=== PATIENT | male | born 1995 | race Caucasian/White ===

== ENCOUNTER 2017-03-23 10:37 | Emergency (ER) | payer OTHER ==
[2017-03-23 10:48] VITALS: BP 117/74
[2017-03-23] MEDS ORDERED: DEXAMETHASONE SOD PHOS INJ 10 MG/1 ML VIAL IM ONE (11:11)
[2017-03-23] MEDS ORDERED: IBUPROFEN 800 MG TABLET PO ONE (11:11)
--- NOTE | 2017-03-23 11:11 | ER Document Report ---
ED ENT - General Chief Complaint: Sore Throat Stated Complaint: SORE THROAT Time Seen by Provider: 03/23/17 10:52 Mode of Arrival: Ambulatory Information source: Patient Notes: 22-year-old male presents to ED for complaint of sore throat and headache since yesterday. He has enlarged tonsils with white patches on the tonsils. - HPI Patient complains to provider of: Throat problem Onset: Yesterday Onset/Duration: Gradual Quality of pain: Sharp Severity: Moderate Pain Level: 2 Location of pain: Throat Associated symptoms: Sore throat - Large tonsils with exudate Similar symptoms previously: No Recently seen / treated by doctor: No Past Medical History - General Information source: Patient - Social History Smoking Status: Current Every Day Smoker Cigarette use (# per day): Yes - One half pack per day Chew tobacco use (# tins/day): No Smoking Education Provided: Yes - Less than 2 minutes Frequency of alcohol use: None Drug Abuse: None 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 denies: Arthritis, CAD, COPD, CVA, Hyperlipidemia, Hypertension, Malignancy, Thyroid Disfunction Patient has suicidal ideation: No Patient has homicidal ideation: No - Past Medical History Cardiac Medical History: Reports: None Pulmonary Medical History: Reports: None EENT Medical History: Reports: None Neurological Medical History: Reports: None Endocrine Medical History: Reports: None Renal/ Medical History: Reports: None Malignancy Medical History: Reports None GI Medical History: Reports: None Musculoskeltal Medical History: Reports None Skin Medical History: Reports None Psychiatric Medical History: Reports: None Traumatic Medical History: Reports: None Infectious Medical History: Reports: None Surgical Hx: Negative Past Surgical History: Reports: None - Immunizations Immunizations up to date: Yes Hx Diphtheria, Pertussis, Tetanus Vaccination: Yes Review of Systems - Review of Systems Constitutional: Recent illness EENT: Throat pain - Enlarged tonsils with exudate Cardiovascular: No symptoms reported Respiratory: No symptoms reported Gastrointestinal: No symptoms reported Genitourinary: No symptoms reported Male Genitourinary: No symptoms reported Musculoskeletal: No symptoms reported Skin: No symptoms reported Hematologic/Lymphatic: No symptoms reported Neurological/Psychological: Headaches -: Yes All other systems reviewed and negative Physical Exam - Vital signs Vitals: Temp Pulse Resp BP Pulse Ox 98.1 F 60 18 117/74 99 03/23/17 10:45 03/23/17 10:45 03/23/17 10:45 03/23/17 10:45 03/23/17 10:45 Interpretation: Normal - General General appearance: Appears well, Alert - HEENT Head: Normocephalic, Atraumatic Eyes: Normal Pupils: PERRL Ears: Normal External canal: Normal Tympanic membrane: Normal Sinus: Normal Nasal: Normal Mouth/Lips: Normal Pharynx: Erythema, Exudate, Tonsillar hypertrophy. No: Blood in hypopharynx, Peritonsillar abscess, Post nasal drainage, Retropharyngeal abscess, Uvular edema, Potential airway comprom., Other - Respiratory Respiratory status: No respiratory distress Chest status: Nontender Breath sounds: Normal Chest palpation: Normal - Cardiovascular Rhythm: Regular Heart sounds: Normal auscultation Murmur: No - Abdominal Inspection: Normal Distension: No distension Bowel sounds: Normal Tenderness: Nontender Organomegaly: No organomegaly - Back Back: Normal, Nontender - Extremities General upper extremity: Normal inspection, Nontender, Normal color, Normal ROM , Normal temperature General lower extremity: Normal inspection, Nontender, Normal color, Normal ROM , Normal temperature, Normal weight bearing. No: Hai's sign - Neurological Neuro grossly intact: Yes Cognition: Normal Orientation: AAOx4 Nicole Coma Scale Eye Opening: Spontaneous Nicole Coma Scale Verbal: Oriented Nicole Coma Scale Motor: Obeys Commands [place] Coma Scale Total: 15 Speech: Normal Motor strength normal: LUE, RUE, LLE, RLE Sensory: Normal - Psychological Associated symptoms: Normal affect, Normal mood - Skin Skin Temperature: Warm Skin Moisture: Dry Skin Color: Normal Course - Re-evaluation Re-evalutation: 03/23/17 12:32 Patient given Decadron for his enlarged tonsils that are painful. His strep was negative. He was also treated with ibuprofen for the discomfort. Patient instructed to follow-up with his provider for continued sore throat. - Vital Signs Vital signs: Temp Pulse Resp BP Pulse Ox 98.1 F 60 18 117/74 99 03/23/17 10:45 03/23/17 10:45 03/23/17 10:45 03/23/17 10:45 03/23/17 10:45 Discharge - Discharge Clinical Impression: Viral sore throat Condition: Stable Disposition: HOME, SELF-CARE Additional Instructions: SORE THROAT: Sore throats may be caused by viruses, bacteria, or fungi. Most are due to a virus, and must get better on their own. Bacterial sore throats, particularly those due to "strep," need treatment with antibiotics. If an antibiotic is prescribed, be sure to take the medication for a full 10 days. Failure to take the antibiotic can result in complications such as rheumatic fever. Sometimes, an injection of antibiotics is given instead of pills or liquid. This single "shot" is equal in effectiveness to the oral medication. To relieve symptoms, take acetaminophen for pain. Sip clear liquids frequently, or eat popsicles or ice chips. Anesthetic sprays or lozenges may help. Make sure the air in the room is not too dry. Avoid using decongestants or antihistamines. Call the doctor if there is no improvement in two days, or if you have difficulty breathing, increasing throat pain, high fever, rash, or frequent vomiting. STEROID MEDICATION: You have been given a medicine of the cortisone/steroid class. This medication is used to control inflammation or allergy. It is usually only given for a short period of time, until the acute process subsides. There are usually no side effects from short-term use of cortisone-like medications. Some persons feel an increased sense of well-being and are not sleepy at bedtime. Long-term use of cortisone medications is best avoided, unless required for a severe condition. If your condition does not remit, or relapses after the course of corticosteroid medication, you should consult your physician. FOLLOW-UP CARE: If you have been referred to a physician for follow-up care, call the physician s office for an appointment as you were instructed or within the next two days. If you experience worsening or a significant change in your symptoms, notify the physician immediately or return to the Emergency Department at any time for re-evaluation. Follow up with your provider. Forms: Smoking Cessation Education
== END 2017-03-23 12:40 | disposition home or self-care (01) ==
LOC: ER 10:37
DX: J02.8 Acute pharyngitis due to other specified organisms (principal); B97.89 Other viral agents as the cause of diseases classified elsewhere; R51 Headache; J35.1 Hypertrophy of tonsils; F17.210 Nicotine dependence, cigarettes, uncomplicated; Z71.6 Tobacco abuse counseling
CPT/HCPCS: 99283; 96372; 87070; 87880; J1100

== ENCOUNTER 2020-06-07 06:58 | Emergency (ER) | payer OTHER ==
[2020-06-07] MEDS ORDERED: METHOCARBAMOL 500 MG TABLET PO ONE (09:20)
--- NOTE | 2020-06-07 09:23 | ER Document Report ---
ED Headache - General Chief Complaint: Headache >24 hrs old Stated Complaint: HEADACHE Time Seen by Provider: 06/07/20 09:09 Primary Care Provider: [facility] [Provider Group] - Follow up as needed Mode of Arrival: Ambulatory Information source: Patient Notes: Patient presents complaining of occipital headache and neck pain that started yesterday around 8 PM. Patient states that he took Motrin early this morning and presently has headache pain is resolved although he does still have some neck discomfort. Patient denies any fever. Patient denies any nausea or vomiting. Patient denies any history of IV drug abuse. Patient feels as though he had a tension headache. 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 denies: Arthritis, CAD, COPD, CVA, Hyperlipidemia, Hypertension, Malignancy, Thyroid Disfunction Neurological Medical History: Reports: Hx Migraine Renal/ Medical History: Denies: Hx Peritoneal Dialysis Surgical Hx: Negative - Immunizations Immunizations up to date: Yes Hx Diphtheria, Pertussis, Tetanus Vaccination: Yes Review of Systems - Review of Systems Constitutional: No symptoms reported. denies: Fever EENT: No symptoms reported Cardiovascular: No symptoms reported Respiratory: No symptoms reported. denies: Cough Gastrointestinal: No symptoms reported. denies: Vomiting Genitourinary: No symptoms reported Male Genitourinary: No symptoms reported Musculoskeletal: Neck pain. denies: Back pain Skin: No symptoms reported Hematologic/Lymphatic: No symptoms reported Neurological/Psychological: Headaches. denies: Confusion, Weakness Physical Exam - Vital signs Vitals: Temp Pulse Resp BP Pulse Ox 98.6 F 68 16 142/79 H 99 06/07/20 07:04 06/07/20 07:04 06/07/20 07:04 06/07/20 07:04 06/07/20 07:04 - Notes Notes: PHYSICAL EXAMINATION: GENERAL: Well-appearing and in no acute distress. HEAD: Atraumatic, normocephalic. EYES: sclera anicteric, conjunctiva are normal. ENT: nares patent. Moist mucous membranes. NECK: Posterior paraspinal cervical muscle tenderness, no meningismus, normal range of motion, supple without lymphadenopathy LUNGS: CTAB and equal. No wheezes rales or rhonchi. HEART: Regular rate and rhythm without murmurs EXTREMITIES: Normal range of motion, no pitting edema. BACK: No midline tenderness, no step-off or deformity. No CVA tenderness NEUROLOGICAL: Cranial nerves grossly intact. Normal speech. Normal gait. PSYCH: Normal mood, normal affect. 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 The patient is neurologically intact. Given the extremely low risk of these diagnoses further testing and evaluation for these possibilities does not appear to be indicated at this time. The patient has been instructed to return if the symptoms worsen or change in any way. - Vital Signs Vital signs: Temp Pulse Resp BP Pulse Ox 97.7 F 61 18 119/75 100 06/07/20 09:31 06/07/20 09:31 06/07/20 09:31 06/07/20 09:31 06/07/20 09:31 Discharge - Discharge Clinical Impression: Tension headache Condition: Stable Disposition: HOME, SELF-CARE Instructions: Muscle Relaxers ([facility]), Tension Headache ([facility]) Additional Instructions: Return immediately for any new or worsening symptoms Followup with your primary care provider, call tomorrow to make a followup appointment Prescriptions: Butalb/Acetaminophen/Caffeine [Fioricet (50-325-40 mg) Tablet] 1 - 2 tab PO Q4H PRN #10 each PRN Reason: Methocarbamol [Robaxin 500 Mg Tablet] 500 mg PO QID PRN #20 tablet PRN Reason: Forms: Return to Work [facility]errals[facility] [Provider Group] - Follow up as needed
[2020-06-07 09:33] VITALS: BP 119/75
== END 2020-06-07 09:32 | disposition home or self-care (01) ==
LOC: ER 06:58
DX: G44.209 Tension-type headache, unspecified, not intractable (principal); M54.2 Cervicalgia; Z79.899 Other long term (current) drug therapy
CPT/HCPCS: 99283

== ENCOUNTER 2020-08-17 09:31 | Emergency (ER) | payer SELFPAY ==
[2020-08-17 10:16] LABS: A TYPE INFLUENZA AG NEGATIVE (NEGATIVE); B INFLUENZA AG NEGATIVE (NEGATIVE)
[2020-08-17] MEDS ORDERED: DICYCLOMINE HCL 20 MG TABLET PO ONE (10:46)
[2020-08-17 11:48] LABS: ABSOLUTE LYMPHOCYTES (AUTO) 0.5 10^3/uL (0.5-4.7); ABSOLUTE MONOCYTES (AUTO) 0.3 10^3/uL (0.1-1.4); ABSOLUTE NEUT (AUTO) 7.2 10^3/uL (1.7-8.2); BASOPHILS % (AUTO) 0.4 % (0-2); EOSINOPHILS % (AUTO) 0.1 % (0-6); HEMATOCRIT 46.2 % (37.9-51.0); HEMOGLOBIN 16.1 g/dL (13.5-17.0); LYMPHOCYTES % (AUTO) 6.4 % (13-45); MEAN CORPUSCULAR HEMOGLOBIN 31.7 pg (27.0-33.4); MEAN CORPUSCULAR HGB CONC 34.9 g/dL (32.0-36.0); MEAN CORPUSCULAR VOLUME 91 fl (80-97); MONOCYTES % (AUTO) 4.2 % (3-13); PLATELET COUNT 231 10^3/uL (150-450); RED BLOOD COUNT 5.09 10^6/uL (4.35-5.55); RED CELL DISTRIBUTION WIDTH 12.6 % (11.5-14.0); SEGMENTED NEUTROPHILS % (AUTO) 88.9 % (42-78); TOTAL CELLS COUNTED % (AUTO) 100 %; WHITE BLOOD COUNT 8.1 10^3/uL (4.0-10.5)
[2020-08-17 11:50] LABS: APPEARANCE,URINE CLEAR; BILIRUBIN,URINE NEGATIVE (NEGATIVE); COLOR,URINE YELLOW; GLUCOSE, URINE NEGATIVE (NEGATIVE); KETONES,URINE NEGATIVE (NEGATIVE); LEUKOCYTE ESTERASE,URINE NEGATIVE (NEGATIVE); NITRITE,URINE NEGATIVE (NEGATIVE); PROTEIN,URINE 30 mg/dL (NEGATIVE); URINE SPECIFIC GRAVITY 1.029; UROBILINOGEN,URINE NEGATIVE mg/dL (<2.0)
[2020-08-17 12:00] LABS: ALBUMIN 4.4 g/dL (3.5-5.0); ALKALINE PHOSPHATASE 82 U/L (38-126); ANION GAP 9 (5-19); ASPARTATE AMINO TRANSFERASE 22 U/L (17-59); BILIRUBIN,DIRECT 0.1 mg/dL (0.0-0.4); BILIRUBIN,TOTAL 0.5 mg/dL (0.2-1.3); BLOOD UREA NITROGEN 14 mg/dL (7-20); CALCIUM 9.7 mg/dL (8.4-10.2); CARBON DIOXIDE 29 mmol/L (22-30); CHLORIDE 100 mmol/L (98-107); GLUCOSE 99 mg/dL (75-110); POTASSIUM 4.4 mmol/L (3.6-5.0); TOTAL PROTEIN 7.2 g/dL (6.3-8.2)
--- NOTE | 2020-08-17 12:31 | ER Document Report ---
Entered by SALAZAR SHARMA SCRIBE 08/17/20 1013 Acting as scribe for:JUAN GARCIA MD ED General - General Chief Complaint: Diarrhea Stated Complaint: DIARRHEA,FEVER,BODY ACHES Time Seen by Provider: 08/17/20 10:08 Mode of Arrival: Ambulatory Information source: Patient Notes: This 25 year old male patient presents to the emergency department today with complaints of fevers, chills, body aches, abdominal cramping, and diarrhea which first began yesterday afternoon. He reports that when he was getting home from work yesterday afternoon at about 2:00 he began having chills and generalized body aches. He reports that he went to sleep at 6:00 PM last night, woke up at 9:00 PM and took ibuprofen, he mentions that he woke up a few times throughout the night and then at 3:00 AM he woke up again with abdominal cramping and diarrhea so he took tylenol. Patient states that he has had x4 episodes of diarrhea in total and he mentions that he gets sharp abdominal cramping that eases off after he passes the stool. Patient states at 5:00 AM he woke up drenched in sweat and he has been up since. Patient denies any known COVID-19 exposure. 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 Lives with: Family Family History: DM Neurological Medical History: Reports: Hx Migraine Surgical Hx: Negative - Immunizations Immunizations up to date: Yes Hx Diphtheria, Pertussis, Tetanus Vaccination: Yes Review of Systems - Review of Systems Constitutional: See HPI, Chills, Fever EENT: No symptoms reported Cardiovascular: No symptoms reported Respiratory: No symptoms reported Gastrointestinal: See HPI, Abdominal pain, Diarrhea Genitourinary: No symptoms reported Male Genitourinary: No symptoms reported Musculoskeletal: See HPI, Joint pain, Muscle pain Skin: No symptoms reported Hematologic/Lymphatic: No symptoms reported Neurological/Psychological: No symptoms reported -: Yes All other systems reviewed and negative Physical Exam - Vital signs Vitals: Temp Pulse Resp BP Pulse Ox 98.0 F 105 H 20 131/63 H 98 08/17/20 09:38 08/17/20 09:38 08/17/20 09:38 08/17/20 09:38 08/17/20 09:38 - Notes Notes: Physical Exam: General: Alert, appears to be uncomfortable. HEENT: Normocephalic. Atraumatic. PERRL. Extraocular movements intact. Oropharynx clear. Neck: Supple. Non-tender. Respiratory: No respiratory distress. Clear and equal breath sounds bilaterally. Cardiovascular: Tachycardic, regular rhythm. Abdominal: Mild diffuse lower abdominal tenderness to palpation. No distension. Normal Bowel Sounds. Back: No gross abnormalities. Extremities: Moves all four extremities. Upper extremities: Normal inspection. Normal ROM. Lower extremities: Normal inspection. No edema. Normal ROM. Neurological: Normal cognition. AAOx4. Normal speech. Psychological: Normal affect. Normal Mood. Skin: Warm. Dry. Normal color. Course - Re-evaluation Re-evalutation: 08/17/20 12:57 The patient was evaluated during the global COVID-19 pandemic and that diagnosis was suspected/considered upon their initial presentation. Their evaluation, treatment and testing was consistent with current guidelines for patients who present with complaints or symptoms that may be related to COVID-19. - Vital Signs Vital signs: Temp Pulse Resp BP Pulse Ox 98.0 F 105 H 20 131/63 H 98 08/17/20 09:38 08/17/20 09:38 08/17/20 09:38 08/17/20 09:38 08/17/20 09:38 - Laboratory Result Diagrams: 08/17/20 11:13 08/17/20 11:13 Laboratory results interpreted by me: 08/17/20 08/17/20 11:13 11:13 Lymph % (Auto) 6.4 L Seg Neutrophils % 88.9 H Urine Protein 30 H Discharge - Discharge Clinical Impression: Nonspecific syndrome suggestive of viral illness Condition: Stable Disposition: HOME, SELF-CARE Additional Instructions: Viral Syndrome: The physician has diagnosed a viral infection. Viruses not only cause "colds," but can cause many different symptoms including generalized aching, fever, headache, cough, diarrhea, nausea, vomiting, and fatigue. The treatment, for the most part, is simply relief of symptoms. This means that antibiotics are usually not given. Rest, fluids, pain medications and, occasionally, medication for the specific symptoms that are most bothersome will be prescribed. Use good handwashing to avoid passing the virus to others. Shared toys should be cleaned with disinfectant. Clean the toilets, sinks, and counter surfaces in bathrooms. Launder clothing in hot water. Contact the physician if you develop any new or unusual symptoms such as severe headache, stiff neck, high fever, chest pain, productive cough, or shortness of breath. You should be rechecked if you don't see marked improvement within seven to 10 days. Your symptoms are consistent with a viral syndrome. Covid virus is known to cause the symptoms you are having, but so are several o ther viruses. You should assume that you have Covid and self isolate at home until you get the results of the Covid testing. You should drink plenty of fluids to stay well-hydrated. Take Tylenol every 4 hours and ibuprofen every 6 hours for fever, chills and body aches. Take Pepto-Bismol for diarrhea if needed. RETURN TO THE EMERGENCY ROOM IF ANY NEW OR WORSENING SYMPTOMS. I personally performed the services described in the documentation, reviewed and edited the documentation which was dictated to the scribe in my presence, and it accurately records my words and actions.
[2020-08-17 13:12] VITALS: BP 111/63
== END 2020-08-17 13:12 | disposition home or self-care (01) ==
LOC: ER 09:31
DX: J06.9 Acute upper respiratory infection, unspecified (principal); B97.89 Other viral agents as the cause of diseases classified elsewhere; R05 Cough; J02.9 Acute pharyngitis, unspecified; R42 Dizziness and giddiness; I10 Essential (primary) hypertension; R50.9 Fever, unspecified; Z91.030 Bee allergy status; Z87.891 Personal history of nicotine dependence; Z20.828 Contact with and (suspected) exposure to other viral communicable diseases
CPT/HCPCS: 99283; 36415; 85025; 87635; 80053; 81001; 87804; J3490; C9803